=== PATIENT | male | born 1990 | race Caucasian/White ===

== ENCOUNTER 2018-10-08 00:31 | Outpatient (CLI) | payer OTHER, SELFPAY ==
[2018-10-08 09:50] LABS: HCT 45.4 % (40.0-50.0); HGB 15.5 g/dL (13.5-17.5); Mean Corp. HGB Concentration 34.1 g/dL (32.0-36.0); Mean Corpuscular Hemoglobin 29.6 pg (27.0-33.0); Mean Corpuscular Volume 86.6 fL (80-95); Mean Platelet Volume 11.3 fL (8.0-11.0); Platelet Count 250 x1000/uL (130-400); RBC 5.24 m/cumm (4.50-6.00); RBC Distribution Width 13.1 % (11.8-14.1); White Blood Cell Count 8.12 k/cumm (4.4-10.8)
[2018-10-08 10:46] LABS: Anion Gap 8.9 mmol/L (3-11); BUN 13 mg/dL (7-18); CO2 28.1 mmol/L (21.0-32.0); CREATININE 0.83 mg/dL (0.70-1.30); Calcium 8.8 mg/dL (8.5-10.1); Calculated LDL 139 mg/dL; Chloride 104 mmol/L (98-107); Cholesterol 189 mg/dL (50-200); Glucose 81 mg/dL (70-100); HDL Cholesterol 26 mg/dL (40-60); Potassium 4.5 mmol/L (3.5-5.1); Sodium 141 mmol/L (136-145); TSH 0.81 uIU/mL (0.358-3.74); Triglyceride 121 mg/dL (30-150)
== END 2018-10-08 00:51 ==
PROVIDERS: PCP Family Medicine; Visit Provider Family Medicine
DX: Z00.00 Encounter for general adult medical examination without abnormal findings (principal); R53.83 Other fatigue
CPT/HCPCS: 36415; 80048; 80061; 83721; 85027; 84443

== ENCOUNTER 2018-10-16 00:30 | Outpatient (CLI) | payer OTHER, SELFPAY ==
--- NOTE | 2018-10-16 08:05 | DI.RAD_ITS ---
SYMPTOMS/DIAGNOSIS: LOW BACK PAIN, M54.5, NECK PAIN, CERVICALGIA, M54.2 LUMBAR SPINE: AP, lateral and bilateral oblique views of the lumbar spine. There is normal alignment. No spondylolysis or spondylolisthesis. The vertebral bodies, disc spaces and posterior elements are well maintained. The bones are normally mineralized. IMPRESSION: Negative examination of the lumbar spine. CERVICAL SPINE: Odontoid, AP, lateral and bilateral oblique views and flexion and extension views were obtained. The odontoid is intact. The lateral masses are well aligned. The vertebral bodies, disc spaces and posterior elements are all well maintained. There is minimal narrowing of the neural foramen bilaterally at C 3 - 4. No significant subluxation is seen with flexion or extension. The soft tissues are unremarkable. IMPRESSION: Minimal narrowing of the neural foramen bilaterally at C 3 - 4.
== END 2018-10-16 00:50 ==
PROVIDERS: PCP Family Medicine; Visit Provider Family Medicine
DX: M54.5 Low back pain (principal); M54.2 Cervicalgia; M99.51 Intervertebral disc stenosis of neural canal of cervical region
CPT/HCPCS: 72052; 72110

== ENCOUNTER 2020-12-30 03:48 | Outpatient (CLI) | payer OTHER, SELFPAY ==
[2020-12-30 08:09] LABS: HCT 44.7 % (40.0-50.0); HGB 14.8 g/dL (13.5-17.5); MCH 28.6 pg (27.0-33.0); MCHC 33.1 % (32.0-36.0); MCV 86.3 fL (80-95); MPV 10.7 fL (8.0-11.0); Platelet Count 240 10^3/uL (130-400); RBC 5.18 10^6/uL (4.36-5.78); RDW 12.4 % (11.8-14.1); WBC 8.51 10^3/uL (4.4-10.8)
[2020-12-30 09:04] LABS: Iron 94 ug/dL (65-175)
[2020-12-30 09:21] LABS: ALT 39 U/L (16-63); AST 14 U/L (15-37); Albumin 3.9 g/dL (3.4-5.0); Alkaline Phosphatase 105 U/L (46-116); Anion Gap 7.7 mmol/L (3-11); BUN 15 mg/dL (7-18); CO2 28.3 mmol/L (21.0-32.0); CREATININE 0.9 mg/dL (0.70-1.30); Calcium 8.9 mg/dL (8.5-10.1); Chloride 105 mmol/L (98-107); Ferritin 407 ng/mL (26-388); Glucose 81 mg/dL (74-106); Potassium 4.3 mmol/L (3.5-5.1); Sodium 141 mmol/L (136-145); TSH (W/Ref FT4) 0.97 uIU/mL (0.36-3.74); Total Protein 7.1 g/dL (6.4-8.2)
[2020-12-30 09:34] LABS: Bilirubin, Total 0.4 mg/dL (0.2-1.0)
[2020-12-31 10:23] LABS: Lyme Ab w Rflx to Lyme Confirm Negative (Negative)
[2021-01-01 21:22] LABS: Anaplasma phagocytophilum Negative (Negative); B. miyamotoi PCR Negative (Negative); Babesia divergens/MO-1 Negative (Negative); Babesia duncani Negative (Negative); Babesia microti Negative (Negative); Ehrlichia chaffeensis Negative (Negative); Ehrlichia ewingii/canis Negative (Negative); Ehrlichia muris eauclairensis Negative (Negative)
== END 2020-12-30 03:49 | disposition home or self-care (01) ==
LOC: LBO 03:48
PROVIDERS: PCP Nurse Practitioner
DX: R53.83 Other fatigue; R10.13 Epigastric pain; E66.9 Obesity, unspecified; K21.9 Gastro-esophageal reflux disease without esophagitis; D50.9 Iron deficiency anemia, unspecified
CPT/HCPCS: 36415; 80053; 85027; 87798; 82728; 83540; 84443; 86618

== ENCOUNTER → 2022-11-11 01:41 | Outpatient (CLI) | payer BC, SELFPAY ==
--- NOTE | 2022-11-11 07:30 | DI.RAD_ITS ---
Exam(s) XR LUMBAR SPINE COMPLETE EXAM: XR LUMBAR SPINE COMPLETE CLINICAL HISTORY: Acute low back pain,M54.5. TECHNIQUE: 2D digital imaging was performed. COMPARISON: CR XR lumbar spine complete from 10/16/2018 FINDINGS: Five views. There appears to be variant anatomy here. The transverse process is of the most superior lumbar vert ebra appear to be possibly rudimentary 12th ribs. Possible transitional vertebra with spina bifida o cculta at this level. No fractures nor scoliosis. No osseous lesions. No pars defects nor listhesis. Lowest disc space i s rudimentary which may be related to transitional vertebra. Other disc spaces above this level exhi bit normal height. IMPRESSION: No acute osseous findings nor significant osseous change compared is 10/16/2018. However, there appe ars to be possible variant anatomy. If clinically indicated a single AP view of the thoracic spine c an be performed to include from at least T1 down to at least the upper 2 lumbar vertebrae. This will unable accurate counting of vertebral bodies. If there is indeed sacralized L5 segment than this us ually causes additional stress on the level above and predisposes to disc protrusions. DATA REPOSITORY: RADIATION DOSE DELIVERED:
== END ==
PROVIDERS: PCP Nurse Practitioner Family; Visit Provider Nurse Practitioner Family
DX: M54.50 Low back pain, unspecified (principal)
CPT/HCPCS: 72110

== ENCOUNTER → 2022-11-24 02:14 | Outpatient (CLI) | payer BC, SELFPAY ==
--- NOTE | 2022-11-24 12:37 | DI.RAD_ITS ---
Exam(s) XR THORACIC SPINE COMPLETE EXAM: XR THORACIC SPINE COMPLETE CLINICAL HISTORY: low back pain,compare to prev xray,m54.5. TECHNIQUE: 2D digital imaging was performed of the thoracic spine. Four views were obtained. AP, s henrik's and lateral views were obtained. COMPARISON: CR XR lumbar spine complete from 10/16/2018 CR XR cervical sp comp w flex/ext from 10/16/2018 CR XR LUMBAR SPINE COMPLETE from 11/11/2022 FINDINGS: There are no prior thoracic spine x-rays for comparison. BONES: There is no fracture or destructive lesion. There are mild degenerative changes seen in the th oracic spine characterized by endplate osteophytes and mild disc space narrowing. DISKS:Alignment is within normal limits. There is mild disc space narrowing in the mid to lower thora cic spine. SOFT TISSUE: Visualized lungs are clear. IMPRESSION: Mild degenerative changes in the thoracic spine. DATA REPOSITORY: RADIATION DOSE DELIVERED:
== END ==
PROVIDERS: PCP Nurse Practitioner Family; Visit Provider Nurse Practitioner Family
DX: M51.34 Other intervertebral disc degeneration, thoracic region (principal)
CPT/HCPCS: 72072

== ENCOUNTER 2023-01-07 01:10 | Outpatient (CLI) | payer BC, SELFPAY ==
--- NOTE | 2023-01-07 06:30 | DI.MRI_ITS ---
Exam(s) MR LUMBAR SPINE WO EXAM: MR LUMBAR SPINE WO CLINICAL HISTORY: no improvement with PT,low back injury and back pain,m54.5,s39.92xa. TECHNIQUE: Multiplanar multisequence MRI of the Lumbar spine was performed. COMPARISON: CR XR LUMBAR SPINE COMPLETE from 11/11/2022 CR XR THORACIC SPINE COMPLETE from 11/24/2022 FINDINGS: There is transitional evident on recent thoracic and lumbar plain films. Numbering of vertebra here will correspond to proper numbering as per recent plain films. The L1 transverse process is are brooke ewhat atypical in appearance on recent plain films. Conus medullaris is at normal level. There is no evidence of conus mass nor subjacent clumping of in trathecal nerve roots to suggest arachnoiditis. The distal thecal sac appears unremarkable.There is no evidence of Tarlov intrasacral cysts nor other significant findings within the sacral canal Bones:There are no fractures nor ominous osseous lesions in the lumbar vertebral bodies and visualize d sacrum. With respect to the individual levels... T12-L1: Unremarkable L1-2: Normal disc height and signal. No disc herniation nor central canal stenosis.No foraminal steno sis L2-3: Normal disc height. No disc herniation nor central canal stenosis.No foraminal stenosis.No face t arthropathy. L3-4: Normal disc height. No disc herniation or central canal stenosis.No foraminal stenosis.No face t arthropathy. L4-5: Normal disc height and signal. No disc herniation or canal stenosis. No foraminal stenosis. Facet joints unremarkable. L5-S1: Normal disc height and signal. However, there is a central subligamentous disc protrusion whi ch extends posteriorly 6 mm and is approximately 12 mm wide. This slightly indents the anterior thec al sac. Osseous canal dimensions are lower normal. The disc protrusion does not extend into the exi ting neural foramina which are patent bilaterally. Facet joints appear unremarkable. Soft tissues: paraspinal soft tissues appear unremarkable. IMPRESSION: 1. There is a central subligamentous disc herniation at L5-S1 level as described above which slightly indents the anterior thecal sac. The osseous canal dimensions are within normal limits at this leve l and the disc protrusion does not extend into the exiting neural foramina which are patent bilateral ly at this level. 2. Other levels are unremarkable with no disc herniations nor canal stenosis nor foraminal stenosis. 3. Please note that if this patient is ever to be a surgical candidate then close review of the MRI a nd plain films together is recommended because of the transitional anatomy here, this so as to avoid operating on the wrong level. DATA REPOSITORY:
--- NOTE | 2023-01-07 06:30 | DI.MRI_ITS ---
Exam(s) MR THORACIC SPINE WO EXAM: MR THORACIC SPINE WO CLINICAL HISTORY: no improvement with PT TECHNIQUE: Multiplanar multisequence MRI of the thoracic spine was performed without intravenous con trast. COMPARISON: No exams were available for comparison FINDINGS: OSSEOUS: There are no thoracic vertebral fractures. There are no ominous osseous lesions in the thor acic vertebrae. DISCS: Small disc protrusion at T8-T9 level THORACIC SPINAL CORD: There is an extra medullary abnormality dorsal to the spinal cord at T7-8 level exhibiting dorsal mass effect, this abnormality exhibiting CSF signal on all sequences. There is mi ld increased signal within the central cord at T7 level. IMPRESSION: 1. There is dorsal mass effect upon the spinal cord at T7-8 level which exhibits CSF signal intensity on all sequences and most probably is related to an arachnoid cyst at this level. This should be fu rther investigated, starting with contrast infused MRI. 2. There is mild increased signal within the cord just above this at the T7 level. DATA REPOSITORY:
--- NOTE | 2023-01-07 16:25 | DI.VRAD_ITS ---
PROCEDURE INFORMATION: Exam: MR Thoracic Spine Without Contrast Exam date and time: 01/07/2023 7:58 AM Age: 32 years old Clinical indication: Pain in thoracic spine TECHNIQUE: Imaging protocol: Magnetic resonance imaging of the thoracic spine without contrast. COMPARISON: CR XR THORACIC SPINE COMPLETE 11/24/2022 12:28 PM FINDINGS: Bones/joints: There is an extra medullary defect dorsal to the spinal cord centered at T7-8, with dorsal mass effect. The abnormality follows CSF signal intensity on all sequences. Subtle increased T2 signal seen within the cord at T7 (series [id number], image 9). Spinal cord: See Bones/joints finding. Soft tissues: Unremarkable. IMPRESSION: CSF signal intensity dorsal mass effect on the spinal cord at T7-8 with subtle increased T2 signal in the cord at T7. Most likely consideration is arachnoid cyst. Initially this could be further evaluated with postcontrast thoracic spine MRI but may need to be confirmed with thoracic myelogram/CT. Dictated and Authenticated by: Casey Beltre MD. Ordering:JAMIE Holloway MD
== END 2023-01-07 01:30 ==
LOC: DI 01:10
PROVIDERS: PCP Nurse Practitioner Family; Visit Provider Nurse Practitioner Family
DX: M51.17 Intervertebral disc disorders with radiculopathy, lumbosacral region
CPT/HCPCS: 72146; 72148

== ENCOUNTER → 2023-05-20 16:38 | Outpatient (CLI) | payer BC, SELFPAY ==
[2023-05-20 12:28] LABS: Abs Immature Grans 0.06 10^3/uL (0.0-0.06); Absolute Basophil Count 0.03 10^3/uL (0.0-0.2); Absolute Eosinophil Count 0.03 10^3/uL (0.0-0.7); Absolute Lymphocyte Count 1.71 10^3/uL (1.2-3.4); Absolute Monocyte Count 0.38 10^3/uL (0.1-0.8); Absolute Neutrophil Count 5.95 10^3/uL (1.2-6.7); Basophils % 0.4; Eosinophils % 0.4; HCT 44.6 % (40.0-50.0); HGB 15.4 g/dL (13.5-17.5); Immature Grans % 0.7; MCH 29.3 pg (27.0-33.0); MCHC 34.5 % (32.0-36.0); MCV 85 fL (80-95); Monocytes % 4.7; Neutrophils % 72.8; Platelet Count 282 10^3/uL (130-400); RBC 5.26 10^6/uL (4.36-5.78); RDW 12.4 % (11.8-14.1); WBC 8.16 10^3/uL (4.4-10.8)
[2023-05-20 12:41] LABS: ALT 54 U/L (16-63); AST 25 U/L (15-37); Alkaline Phosphatase 109 U/L (46-116); Anion Gap 8.6 mmol/L (3-11); BUN 10 mg/dL (7-18); Bilirubin, Total 0.5 mg/dL (0.2-1.0); CO2 29.4 mmol/L (21.0-32.0); Calcium 9.1 mg/dL (8.5-10.1); Chloride 104 mmol/L (98-107); Estimated GFR 101.92 (mL/min/1.73m2); Glucose 104 mg/dL (74-106); Lipase 17 U/L (16-77); Potassium 3.7 mmol/L (3.5-5.1); Sodium 142 mmol/L (136-145); Total Protein 8.2 g/dL (6.4-8.2)
[2023-05-20] MEDS: Omnipaque 350 MG/ML 100 ML BTL IJ (13:56)
[2023-05-20] MEDS: Normal Saline - Diluent 50 ML VIAL IJ (13:57)
[2023-05-20] MEDS: Barium Sulfate 2% W/V-Berry Smoothie 450 ML BTL PO (13:59)
[2023-05-20] MEDS: Barium Sulfate 2% W/V-Creamy Vanilla Smoothie 450 ML BTL PO (13:59)
--- NOTE | 2023-05-20 14:10 | DI.CT_ITS ---
Exam(s) CT ABDOMEN PELVIS W EXAM: CT ABDOMEN PELVIS W CLINICAL HISTORY: right lower quad abd pain R10.9 TECHNIQUE: Imaging Protocol: Axial computed tomography images with coronal and sagittal reformatted images were created and reviewed. CONTRAST MATERIAL: Intravenous: Omnipaque 350 Contrast volume:100 mL Oral: Yes COMPARISON: No exams were available for comparison FINDINGS: ABDOMEN: Lung Bases: Normal where visualized. Liver: There is diffuse decreased attenuation of the liver consistent with fatty infiltration. No me asurable mass. Portal, Superior Mesenteric, and Splenic Veins: Unremarkable. Gallbladder and Biliary Tract: No radiodense calculus or dilation. Pancreas: Normal density, no abnormal calcifications or inflammatory process. Spleen: Normal. Adrenals: No masses seen. Kidneys: Normal size, contour and axis. No radiodense stones or obstructive uropathy. No masses seen. Abdominal Aorta: Abdominal portion non-dilated. Bowel: There are scattered diverticula in the colon but no evidence of acute diverticulitis. There i s mild bowel wall thickening seen at the hepatic flexure and in the base of the cecum with surroundin g pericolonic inflammation. The findings are suspicious for infectious or inflammatory colitis. The re is a normal appendix. Peritoneal Cavity: No ascites, collection or mesenteric inflammatory response. No free air. Lymph Nodes: Within normal limits. Bones: Within normal limits for the patient's age. Soft Tissues: There is a small fat containing umbilical hernia. PELVIS: Bladder: Symmetric distention, no gross wall thickening. Reproductive Organs: Unremarkable as visualized. Lymph Nodes: Within normal limits. Bones: Within normal limits for the patient's age. IMPRESSION: 1. There is bowel wall thickening seen in the base of the cecum and in the region of the hepatic flex ure. There is infiltration of the surrounding soft tissues raising the question of an infectious or inflammatory process. An underlying neoplasm can not be excluded. Please correlate clinically. Col onoscopy/barium enema should be considered for further evaluation. 2. Fatty infiltration of the liver. RADIATION DOSE DELIVERED: 2,528.2mGy.cm Total DLP DATA REPOSITORY: All CT scans at this facility are submitted to the National Radiology Data Registry (NRDR) Dose Index Registry (DIR) with the [employer] (A[employer]). RADIATION OPTIMIZATION: All CT scans at this facility use at least one of these dose optimization te chniques: automated exposure control; mA and/or kV adjustment per patient size (includes targeted exa ms where dose is matched to clinical indication); or iterative reconstruction.
== END ==
PROVIDERS: PCP Nurse Practitioner Family; Visit Provider Nurse Practitioner Acute Care
DX: R10.31 Right lower quadrant pain (principal); K63.89 Other specified diseases of intestine; K76.0 Fatty (change of) liver, not elsewhere classified
CPT/HCPCS: 36415; 80053; 83690; 74177; 85025; J3490

== ENCOUNTER 2023-05-30 08:59 | Day surgery (SDC) | payer BC, SELFPAY ==
--- NOTE | 2023-05-29 07:19 | W.PM.DSUDISC ---
Date of service: 05/30/23 Time of Service: 10:48 Discharge Plan Disposition Patient Disposition: Home Condition: Good Discharge Details Reason For Visit: EGD and colonoscopy Attending Provider: Eber Wong Primary Care Provider: Jewel Noonan Home Meds and New Rx's Prescriptions: No Action acetaminophen 325 mg capsule 325 mg PO Q6H PRN ibuprofen 200 mg capsule 200 mg PO Q6H PRN cyclobenzaprine 10 mg tablet 10 mg PO TID PRN (Reason: muscle spasm) Qty: 30 0RF triamcinolone acetonide 0.1 % cream 1 applic TP BID Qty: 80 1RF Discharge Instructions Instructions: Gastritis (GEN), Diverticulosis (GEN), Diverticulosis Diet (GEN) Additional Instructions: Lauro, we were able to complete your upper and lower endoscopy today without much difficulty. The most significant findings include a small amount of gastritis (inflammation of your stomach) and duodenitis in the first part of the duodenum where your stomach empties into. This is typically caused by increased stomach acid production, and usually treated by H2 blockers or proton pump inhibitors (medications that help reduce stomach acid). I do not see anything particularly worrisome about it to the naked eye, but I did do some biopsies to be safe. With regards to the colonoscopy, there are some occasional diverticula. Diverticula are little weak spots in the muscular portion of the colon wall. I suppose this could explain some of the findings seen on your CT scan. I have attached a little bit of information here regarding typical approaches to diverticular disease. In real simple terms, the general recommendation is to increase your dietary fiber, and avoid symptoms of constipation and dehydration. We talked a little bit about the possibility of ulcerative colitis or Crohn's disease being the source of your abdominal discomfort. I did not see any active signs of that. I did do some biopsies in the last part of the small intestine right where it connects to the large intestine. This is called the terminal ileum, and it is a common place for patients to get Crohn's disease. Once I have all the biopsy results compiled, I will be in touch with any other recommendations 1. If tolerated, consume a soft, low fiber diet for 1-2 days. 2. Do not drive, drink alcohol, operate machinery, make critical decisions, or do activities that require coordination or balance for 24 hours. 3. Because air was put into your colon during the procedure, expelling air from your rectum (passing gas or farting) is normal. 4. You may not have a bowel movement for 1-3 days because of the colonoscopy prep. This is normal. 5. You may experience a sore throat for 24 to 48 hours. You may use throat lozenges or gargle with warm salt water to relieve the discomfort. 6. Because air was put into your stomach during the procedure, you may experience some belching. 7. Go directly to the emergency room if you notice any of the following: Develop chills (warm to touch), or if you have a thermometer and your temperature is above 101 Difficulty breathing or difficultly swallowing Persistent vomiting Severe abdominal pain, other than gas cramps Severe chest pain Black, tarry stools Any bleeding ? exceeding one tablespoon 8. Call your physician if the site where your intravenous was started becomes red, swollen, painful, and warm to touch. 9. Your physician has reviewed your pre-procedure medications. Please continue to take those medications as previously ordered. You will be given specific information/education regarding any changes to your medications before leaving. Activity:: Activity as Tolerated Diet:: As Tolerated Discharge Orders Discharge Orders: Discharge Order (Routine); Ordered 05/29/23 Ordered By: Eber Wong DS: Diagnosis Discharge Diagnosis (1) Abdominal pain: Status: Acute Asessment and Plan: Follow-up on biopsy results
--- NOTE | 2023-05-29 07:20 | ENDO_ITS ---
Date of service: 05/30/23 Time of Service: 10:52 Endoscopy Report DATE OF PROCEDURE: 05/30/23 PRE-OP DIAGNOSIS: Crohns disease POST-OP DIAGNOSIS: other (Gastritis, duodenitis, diverticulosis) PROCEDURE: EGD with biopsies and colonoscopy with biopsies SURGEON: Eber Wong ANESTHESIA TYPE: General:No Airway ESTIMATED BLOOD LOSS: 20 PATHOLOGY: other (Biopsies of duodenum and duodenal bulb. Random biopsies of gastric antrum and body. Biopsies of terminal ileum. Random colon biopsies.) COMPLICATIONS: None DISPOSITION: same day INDICATIONS: Lauro is 33 years old with chronic nonspecific abdominal pain. CT scan supports a diagnosis of terminal ileitis. He is here for diagnostic EGD and colonoscopy. PREP: Miralax/Dulcolax PROCEDURE START TIME: 10:10 PROCEDURE END TIME: 10:36 COLONOSCOPY RETRACTION TIME: 12 FINDINGS: Gastric antritis and duodenitis; diverticulosis PROCEDURE DESCRIPTION: After the initiation of anesthesia, and with the assistance of a bite block, I advanced a standard gastroscope through the mouth past the hypopharynx and into the esophagus.? Under the direct vision of the scope, I advanced down the esophagus towards the stomach.? The GE junction and Z-line were encountered at 42 cm from the incisors. The regular. I did not see any signs of Srivastava's esophagus. Narrowband imaging was used to assess with the analysis. I traversed the GE junction down into the stomach and insufflated until the gastric rugae were obliterated. There was just a little bit of inflammation around the gastric antrum heading towards the pylorus. It seemed consistent with very mild gastritis. I was able to advance the camera down across the pylorus into the duodenum. Similarly, there was a little bit of inflammation in the duodenal bulb. The first and second portions of the duodenum otherwise looked normal. Given the uncertainty of the diagnosis here, I did perform random biopsies of the duodenum and duodenal bulb. I also perform random biopsies of the gastric antrum and body all using cold forceps. There was minimal bleeding from any of the sites. I then emptied the stomach, and brought the camera back out along the length of the esophagus which appeared totally normal. Then we moved Lauro into the left lateral decubitus position. I began by performing an external anorectal exam.? Perineum and skin were normal, as was the anal verge.? There was no evidence of external hemorrhoids.? Next, I performed a digital rectal exam.? I did not appreciate any abnormal findings.? Next, I advanced a colonoscope into the rectal vault.? I performed retroflexion.? This was normal.? Using insufflation, I then advanced the colonoscope beyond the rectal folds and into the sigmoid colon before advancing towards the cecum.? There were occasional small mouth diverticula along the length of the colon. It was not particularly focused in the sigmoid.? The scope was noted to be in the cecum by identification of the ileocecal valve and appendiceal orifice.? I did not see any signs of obvious terminal ileitis. I did perform cold forceps biopsies of the terminal ileum to help rule out Crohn's disease as a source of the abnormalities. I then began withdrawing the colonoscope using repeated irrigation as necessary for full evaluation of the colonic mucosa. Again, in order to help refine the diagnosis, I did use cold forceps to perform random biopsies in the ascending transverse and descending c olons. ?Once the scope was withdrawn to the level of the rectum, great care was taken to examine portions of the rectal folds. Finally, the scope was withdrawn and the patient was brought to the same-day surgery recovery unit as the anesthetic wore off. ?The findings and instructions were shared with the patient prior to discharge. The [place] bowel prep score was 3, 3, 3 from right to left.
[2023-05-30 09:17] VITALS: BP 145/90; PULSE 101; RESP 16; TEMP 36.4; O2SAT 96
[2023-05-30] MEDS: Lactated Ringers 1,000 ML 80 ML IV (09:24)
--- NOTE | 2023-05-30 09:29 | ANES.PREOP_ITS ---
General Info Date of Service Date Performed: 05/30/23 Height: 5 ft 4 in Weight: 115.4 kg Body Mass Index (BMI): 43.7 Surgical Procedure: Operation Date: 05/30/23 10:35 Proposed Procedure Side Surgeon p Colonoscopy/Gastroscopy Eber Wong MD Meds Allergies and Home Medications Allergies Allergy/AdvReac Type Severity Reaction Status Date / Time No Known Allergies Allergy Verified 05/30/23 09:10 Home Medication Medication Instructions Recorded acetaminophen 325 mg capsule 325 mg PO Q6H PRN 10/06/18 ibuprofen 200 mg capsule 200 mg PO Q6H PRN 10/06/18 triamcinolone acetonide 0.1 % 1 applic topical BID #80 grams 11/10/18 topical cream cyclobenzaprine 10 mg tablet 10 mg PO TID PRN muscle spasm #30 12/20/22 tabs Current Visit Medications: Current Medications Generic Name Dose Route Start Last Admin Trade Name Freq PRN Reason Stop Dose Admin Hyoscyamine Sulfate 0.125 mg 05/29/23 07:21 Hyoscyamine 0.125 Mg Sl/Oral/Chew SL 06/28/23 07:20 DIRECTED PRN Ringer's Solution 1,000 mls @ 80 mls/hr 05/30/23 06:00 05/30/23 09:24 IV 05/30/23 23:59 80 mls/hr INFUSION CARLOS Administration IV Miscellaneous Supplies 1 each 05/30/23 06:00 Iv Access IV 05/30/23 23:59 DIRECTED CARLOS Ondansetron HCl 4 mg 05/29/23 07:21 Ondansetron 4 Mg/2 Ml Vial IVP 06/28/23 07:20 Q4H PRN PRN Nausea / Vomiting Sodium Chloride 0 ml 05/30/23 06:00 Normal Saline Flush 10 Ml Syr IV 05/30/23 23:59 PRN PRN Sodium Chloride 0 ml 05/30/23 06:00 Normal Saline 10 Ml Vial IJ 05/30/23 23:59 DIRECTED PRN Sterile Water 0 ml 05/30/23 06:00 Water,Injection,Sterile 10 Ml Vial IJ 05/30/23 23:59 DIRECTED PRN PFSH Active Problems Active Problems: Problem Status Onset Code Abdominal pain R10.9 Joint pain M25.50 Fatigue R53.83 GERD (gastroesophageal reflux disease) K21.9 Carpal tunnel syndrome on both sides G56.03 Obesity E66.9 Migraine G43.909 Low back pain M54.5 Medical History Medical History Lower back injury Epigastric pain Tobacco Smoking/Tobacco Use Status: Former Tobacco Use Passive smoking exposure: No Alcohol Alcohol Intake: never Substance Use Substance use: Never Substance use type: does not use Vital Signs and Lab Results Vital Signs Most Recent Vital Signs in EMR: Most Recent Vital Signs Temp Pulse Resp BP Pulse Ox 36.4 C L 101 H 16 145/90 H 96 05/30/23 09:17 05/30/23 09:17 05/30/23 09:17 05/30/23 09:17 05/30/23 09:17 Lab Results Blood Type / Crossmatch: No Data to Display Complete Blood Count: White Blood Count 8.16 10^3/uL (4.4-10.8) 05/20/23 12:15 Red Blood Count 5.26 10^6/uL (4.36-5.78) 05/20/23 12:15 Hemoglobin 15.4 g/dL (13.5-17.5) 05/20/23 12:15 Hematocrit 44.6 % (40.0-50.0) 05/20/23 12:15 Platelet Count 282 10^3/uL (130-400) 05/20/23 12:15 Complete Metabolic Panel: Sodium 142 mmol/L (136-145) 05/20/23 12:15 Potassium 3.7 mmol/L (3.5-5.1) 05/20/23 12:15 Chloride 104 mmol/L (98-107) 05/20/23 12:15 Carbon Dioxide 29.4 mmol/L (21.0-32.0) 05/20/23 12:15 BUN 10 mg/dL (7-18) 05/20/23 12:15 Creatinine 1.0 mg/dL (0.70-1.30) 05/20/23 12:15 Est GFR (CKD-EPI 2020) 101.92 (mL/min/1.73m2) 05/20/23 12:15 Calcium 9.1 mg/dL (8.5-10.1) 05/20/23 12:15 Albumin 4.0 g/dL (3.4-5.0) 05/20/23 12:15 Glucose 104 mg/dL (74-106) 05/20/23 12:15 Liver Function Panel: Alanine Aminotransferase (ALT/SGPT) 54 U/L (16-63) 05/20/23 12: 15 Aspartate Amino Transf (AST/SGOT) 25 U/L (15-37) 05/20/23 12:15 Coagulation Panel: No Data to Display Cardiac Panel: No Data to Display Arterial Blood Gas: No Data to Display Venous Blood Gas: No Data to Display Pancreas Panel: Lipase 17 U/L (16-77) 05/20/23 12:15 Thyroid Panel: No Data to Display Infectious Disease: No Data to Display Blood Cultures: No Data to Display Toxicology Panel: No Data to Display Anesthesia Assessment and Plan Anesthesia History Personal History: No History of Anesthesia Complications Family History: No Family History of Anesthesia Complications Exercise Tolerance Exercise Tolerance: Metabolic Equivalents>4 Cardiac & Pulmonary Exam Cardiac Exam: Normal S1/S2 Heart Sounds Pulmonary Exam: Clear Bilateral Breath Sounds Implantable Cardiac Device Does patient have a Pacemaker or an ICD?: No Airway Exam Known Difficult Airway: No Mallampati Class: 4 Mouth Opening: Narrow (< 3cm) Thyromental Distance: Less than 3 cm Facial Hair: Full Renee Neck Range of Motion: Full ROM Neck Circumference: Normal Teeth Condition: Normal Dentition ASA Classification ASA Score: ASA 3 Emergency Case?: No NPO Status NPO Status: NPO Clears >2 hours, Solids >8 hours Anesthesia Plan Resuscitation Status: Full Code Anesthesia Technique: General Anesthesia Airway Planned: Natural Airway Monitors Used: Standard Monitors Preoperative Comments:: 33 yo male for EGD/colo due to gerd/epigastric pain and bowel thickening on CT. Sig PMHx: GERD, BMI >40, low back pain. former smoker.
[2023-05-30 09:32] VITALS: BMI 43.7
--- NOTE | 2023-05-30 10:12 | BOWEL_PTH ---
PATIENT: Lauro Limon LOC: [facility] U#:[id number] AGE/SX: 33/M ROOM: RE05/30/[address]: Eber Wong MD : 1990 BED: DIS: 05/30/2023 SPEC #: [id number] RECD: 05/30/23 12:36 STATUS: ALEX REQ #: [id number] JAILENE: 05/30/23 10:[address]: Eber Wong DEPT: Surgical Specimen RECD BY: Kimberley Urrutia ENTERED: 05/30/23 12:38 SP TYPE: Bowel OTHR DR: Jewel King DNP Tissues: 1 - BIOPSY BOWEL 2 - BIOPSY BOWEL 3 - STOMACH BIOPSY 4 - STOMACH BIOPSY 5 - BIOPSY BOWEL 6 - BIOPSY BOWEL Procedures: GROSS AND MICRO LEVEL 4 Comments: [id number]
[2023-05-30 10:45] VITALS: BP 146/98; PULSE 95; RESP 16; TEMP 36.8; O2SAT 99
[2023-05-30 10:58] VITALS: BP 150/88; PULSE 79; RESP 18; TEMP 36.8; O2SAT 99
--- NOTE | 2023-05-30 11:42 | W.ANESPOSTOP ---
Postoperative Evaluation Date, Time and Location Date Performed: 05/30/23 Time Performed: 11:00 Patient Location: Day Surgery Unit Vital Signs Most Recent Imported Vital Signs: Most Recent Vital Signs Temp Pulse Resp BP Pulse Ox 36.8 C 79 18 150/88 H 99 05/30/23 10:58 05/30/23 10:58 05/30/23 10:58 05/30/23 10:58 05/30/23 10:58 Pain Score Most Recent Pain Score: Most Recent Pain Score Pain Level 0 05/30/23 10:58 Assessment Mental Status: Awake (Alert & Oriented to Patient Baseline) Airway and Respiratory Function: Patent airway with normal (patient baseline) respiratory exam Cardiovascular Function: Hemodynamically Stable Hydration Status: Adequately Hydrated Nausea & Vomiting: No Nausea or Vomiting Pain: Pt. Denies Any Pain Peripheral Nerve Block: Patient did not receive a nerve block
== END 2023-05-30 11:32 | disposition home or self-care (01) ==
LOC: SUR 09:00
PROVIDERS: PCP Nurse Practitioner Family; Visit Provider Surgery
PROC: (CPT 45380; principal; 2023-05-30 10:30)
DX: R10.9 Unspecified abdominal pain (principal); K29.70 Gastritis, unspecified, without bleeding; K29.80 Duodenitis without bleeding; K57.30 Diverticulosis of large intestine without perforation or abscess without bleeding
CPT/HCPCS: 45380; 43239; 88305; J2001; J2704